=== PATIENT | female | born 1985 | race Caucasian/White ===

== ENCOUNTER 2017-04-23 13:03 | Outpatient (CLI) | payer OTHER | END 2017-04-23 13:04 | disposition home or self-care (01) | LOC: BICRAD 13:03 | PROVIDERS: ATTEND Specialist | DX: R05 Cough (principal) | CPT/HCPCS: 71020 ==

== ENCOUNTER 2017-06-12 11:03 | Outpatient (CLI) | payer OTHER | END 2017-06-12 11:04 | disposition home or self-care (01) | LOC: BICRAD 11:03 | PROVIDERS: ATTEND Nurse Practitioner Family | DX: M54.2 Cervicalgia (principal); M54.5 Low back pain; M54.6 Pain in thoracic spine | CPT/HCPCS: 72052; 72072; 72100 ==

== ENCOUNTER 2017-08-21 13:38 | Outpatient (CLI) | payer OTHER ==
--- NOTE | 2017-08-21 17:50 | MRI ---
MRI LUMBAR SPINE WITHOUT IV CONTRAST: Date: 08-21-17 History: Lumbar radiculopathy on the right. Patient complains of right leg, hip, and back pain. FINDINGS: Retroperitoneal structures have a normal MR appearance. Normal signal intensity is demonstrated in th e bone marrow. Conus medullaris is normal in appearance, terminating at the L1-2 level. L1-2: There is no disc bulge or disc herniation. Central spinal canal and neural foramina are patent. L2-3: There is a minimal broad based disc bulge without significant central canal or neural foraminal narrowing. L3-4: There is no significant disc bulge or disc herniation. Central spinal canal and neural foramina are patent. L4-5: There is mild broad based disc bulge but the central spinal canal is patent. There is minimal e ncroachment on the left neural foramen. The right neural foramen is patent. L5-S1: There is no disc bulge. The central canal spinal canal is patent. There are facet hypertrophic changes at this level, greater on the left, which does result in moderate encroachment on the left n eural foramen. Right neural foramen is patent. IMPRESSION: Minimal disc degenerative changes in the lumbar spine. POS: [facility]
== END 2017-08-21 13:39 | disposition home or self-care (01) ==
LOC: MRI 13:38
PROVIDERS: ATTEND Family Medicine
DX: M47.26 Other spondylosis with radiculopathy, lumbar region (principal)
CPT/HCPCS: 72148

== ENCOUNTER 2018-01-16 10:33 | Outpatient (CLI) | payer OTHER | END 2018-01-16 10:34 | disposition home or self-care (01) | LOC: BICRAD 10:33 | PROVIDERS: ATTEND Family Medicine | DX: M77.52 Other enthesopathy of left foot and ankle (principal); M79.89 Other specified soft tissue disorders | CPT/HCPCS: 36415; 80053; 84439; 84443; 84481 ==

== ENCOUNTER 2018-06-19 10:40 | Outpatient (CLI) | payer OTHER | END 2018-06-19 10:41 | disposition home or self-care (01) | LOC: CTENTCT 10:40 | PROVIDERS: ATTEND Otolaryngology Plastic Surgery within the Head & Neck | DX: J32.9 Chronic sinusitis, unspecified (principal) | CPT/HCPCS: 70486 ==

== ENCOUNTER 2018-06-25 07:46 | Day surgery (SDC) | payer OTHER ==
[2018-06-24 12:26] VITALS: BMI 23.8
[2018-06-25] MEDS ORDERED: Oxymetazoline HCl 0.05% ( 15 ML ) ONE ×3 (10:55→12:27)
[2018-06-25] MEDS ORDERED: Dexamethasone 20 MG/5 ML VIAL ONE (12:06)
[2018-06-25] MEDS ORDERED: Succinylcholine Chloride 20 MG/ML 10 ml SYRINGE FS ONE (12:06)
[2018-06-25] MEDS ORDERED: Ondansetron PF 4 MG/2 ML Vial ONE ×2 (12:06→13:49)
[2018-06-25] MEDS ORDERED: Lidocaine 1% PF 5 ML VIAL ONE (12:06)
[2018-06-25] MEDS ORDERED: PROPOFOL 200 MG/20 ML VIAL ONE (12:06)
[2018-06-25] MEDS ORDERED: Fentanyl 100 MCG/2 ML VIAL ONE ×3 (12:24→13:49)
[2018-06-25] MEDS ORDERED: Lidocaine 1% w/Epinephrine 1:100K 20 ML VIAL ONE (12:27)
[2018-06-25] MEDS ORDERED: Bacitracin Zinc Ointment 30 gm TUBE ONE (12:27)
[2018-06-25] MEDS ORDERED: Ketorolac Tromethamine 30 MG/ML VIAL ONE (13:49)
[2018-06-25] MEDS ORDERED: HYDROcodone/Acetaminophen 5/325 mg Tablet ONE (15:37)
--- NOTE | 2018-06-26 13:41 | OP ---
DATE OF PROCEDURE: 06/25/2018 PREOPERATIVE DIAGNOSES: 1. Chronic rhinosinusitis. 2. Nasal septal deviation. 3. Bilateral inferior turbinate hypertrophy. 4. Nasal obstruction. POSTOPERATIVE DIAGNOSES: 1. Chronic rhinosinusitis. 2. Nasal septal deviation. 3. Bilateral inferior turbinate hypertrophy. 4. Nasal obstruction. PROCEDURES PERFORMED: 1. Bilateral endoscopic sinus surgery, total ethmoidectomies. 2. Bilateral endoscopic sinus surgery, maxillary antrostomies. 3. Bilateral endoscopic sinus surgery, frontal sinusotomy. 4. Nasal septoplasty. 5. Bilateral inferior turbinate submucosal resection. ESTIMATED BLOOD LOSS: 50 mL COMPLICATIONS: None. ANESTHESIA: GETA. PROCEDURE IN DETAIL: Patient was taken to the operating room and placed supine on the table. General endotracheal anesthesia was obtained by the anesthesia staff. Tube was secured in the left lower lip. Patient was then placed in the beach chair position, and Afrin pledgets were placed in the nasal cavity. Injections of 1% lidocaine with 1:100,000 epinephrine were made into the nasal septum as well as the inferior turbinates. Patient was then prepped and draped in standard surgical fashion for nasal surgery. Following this, the Afrin pledgets were removed. A [place] incision was made on the left nasal septum. Submucoperichondrial dissection was performed. The deviated portions of the septum included portions of the cartilage and the bony septum. These isolated areas were removed using 3 cutting rongeurs. There was noted to be a large dorsal and caudal strut, left intact for support of the nose. The mucoperichondrial flaps were then reapproximated using a 4-0 gut stitch. Any straight pieces of cartilage were crushed prior to this and placed between the mucoperichondrial flaps. Following this, the inferior turbinates were then punctured with a submucosal coblation wand, and submucosal coblations were performed of multiple areas of the inferior portion of the anterior inferior turbinate. Please note that the submucosal microdebrider blade was used to submucosally resect the anterior and inferior portions of the inferior turbinates bilaterally. Following this, a 0-degree endoscope was advanced in the middle meatus. Middle turbinates were gently medialized using a [place]akin elevator. Following this, the uncinate process was identified and was anteriorly fractured using a ball-ended probe bilaterally. Following this, the uncinate process was removed using the 0-degree microdebrider and upbiting Blakesley forceps. Following this, the natural maxillary sinus ostia were gently palpated using a ball-ended probe. Following this, the natural maxillary sinus ostia were widened using the curved microdebrider and straight Blakesley forceps bilaterally. Following this, the ethmoidal bulla was identified bilaterally and was punctured on its medial and inferior aspect with the 0-degree microdebrider. Following this, the ethmoidal bulla and anterior ethmoidal cells were opened using the microdebrider and the up-biting Blakesley forceps. Following this, the grand lamella was identified bilaterally and was punctured using the 0-degree microdebrider into the posterior ethmoidal cells. Working from posterior to anterior, the ethmoidal cells were opened. Following this, the 45-degree endoscope was used to further visualize the frontal sinus recess and frontal sinus ostia. Using the curved microdebrider, the frontal sinus ostia were widened bilaterally. Following this, the sphenoid sinuses were approached by staying medial to the middle turbinates. Using the 0-degree scope, the attachment of the superior turbinate to the posterior nasal wall was identified. Staying just medial and inferior to this attachment, a Garza tip suction was used to recreate the narrowed sphenoid sinus ostia bilaterally. Following this, the sphenoid sinus ostia were widened bilaterally using the microdebrider and was widened medially and inferiorly. Following this, the nasal cavity was irrigated. MeroPack's were placed within the middle meatus. Gomez splints were placed and secured. The patient tolerated the procedure well. Job ID: [id number]
== END 2018-06-25 16:00 | disposition home or self-care (01) ==
LOC: SDC 07:46
PROVIDERS: ATTEND Otolaryngology Plastic Surgery within the Head & Neck
PROC: 099W8ZZ Drainage of Right Sphenoid Sinus, Via Natural or Artificial Opening Endoscopic (ICD-10-PCS; principal; 2018-06-25)
PROC: 099X8ZZ Drainage of Left Sphenoid Sinus, Via Natural or Artificial Opening Endoscopic (ICD-10-PCS; principal; 2018-06-25)
PROC: 09SM0ZZ Reposition Nasal Septum, Open Approach (ICD-10-PCS; principal; 2018-06-25)
PROC: 099S8ZZ Drainage of Right Frontal Sinus, Via Natural or Artificial Opening Endoscopic (ICD-10-PCS; principal; 2018-06-25)
PROC: 09TU8ZZ Resection of Right Ethmoid Sinus, Via Natural or Artificial Opening Endoscopic (ICD-10-PCS; principal; 2018-06-25)
PROC: 099R8ZZ Drainage of Left Maxillary Sinus, Via Natural or Artificial Opening Endoscopic (ICD-10-PCS; principal; 2018-06-25)
PROC: 09TL0ZZ Resection of Nasal Turbinate, Open Approach (ICD-10-PCS; principal; 2018-06-25)
PROC: 09TV8ZZ Resection of Left Ethmoid Sinus, Via Natural or Artificial Opening Endoscopic (ICD-10-PCS; principal; 2018-06-25)
PROC: 099T8ZZ Drainage of Left Frontal Sinus, Via Natural or Artificial Opening Endoscopic (ICD-10-PCS; principal; 2018-06-25)
PROC: 099Q8ZZ Drainage of Right Maxillary Sinus, Via Natural or Artificial Opening Endoscopic (ICD-10-PCS; principal; 2018-06-25)
DX: J32.4 Chronic pansinusitis (principal); J34.2 Deviated nasal septum; J34.3 Hypertrophy of nasal turbinates; R09.82 Postnasal drip; F41.9 Anxiety disorder, unspecified; F32.9 Major depressive disorder, single episode, unspecified; M79.7 Fibromyalgia; M19.90 Unspecified osteoarthritis, unspecified site; Z87.891 Personal history of nicotine dependence; Z79.899 Other long term (current) drug therapy; Z88.2 Allergy status to sulfonamides; Z88.5 Allergy status to narcotic agent; Z88.8 Allergy status to other drugs, medicaments and biological substances; Z91.048 Other nonmedicinal substance allergy status
CPT/HCPCS: 85014; J1100; J1885; J2001; J2405; J2704; J3010

== ENCOUNTER 2019-03-27 08:11 | Outpatient (CLI) | payer OTHER ==
--- NOTE | 2019-03-27 12:23 | NM ---
NUCLEAR MEDICINE PARATHYROID SCAN: HISTORY: Hyperparathyroidism. COMPARISON: None. TECHNIQUE: Patient was administered 25 mg of technetium 99m sestamibi intravenously. Immediate, 1 hour and 2 yany r planar imaging was performed. In addition, SPECT images were performed. FINDINGS: Appropriate uptake of the radiotracer in the salivary glands and thyroid gland. On the 1 and 2 hour d elayed images, there is no significant radiotracer retention in the thyroid bed. IMPRESSION: No scintigraphic evidence of significant radiotracer retention in the thyroid bed to suggest parathyr oid adenoma. Further evaluation with a pre and postcontrast soft tissue neck CT utilizing parathyroid protocol may be beneficial. Transcribed Date/Time: 03/27/2019 12:27 PM
== END 2019-03-27 08:12 | disposition home or self-care (01) ==
LOC: NM 08:11
PROVIDERS: ATTEND Family Medicine
DX: E21.3 Hyperparathyroidism, unspecified (principal)
CPT/HCPCS: 78072; A9500

== ENCOUNTER 2019-04-28 07:22 | Outpatient (CLI) | payer OTHER ==
--- NOTE | 2019-04-28 10:06 | CT ---
CT NECK WITH AND WITHOUT CONTRAST: (PARATHYROID PROTOCOL) 04/28/2019 HISTORY: A 33-year-old female with primary hyperparathyroidism. Hypercalcemia. TECHNIQUE: IV contrast: Isovue-370 110 mL. Pre-contrast scan, 25 second post-contrast scan and 65 second post-contrast scan were performed from the subcarinal mediastinum to the mid maxillary sinus level. Coronal and sagittal reconstructions. FINDINGS: At the C7 level there is a right paraesophageal enhancing small mass, measuring approximately 1.5 x 0 .3 x 0.8 cm, abutting the medial surface of the right longus colli muscle and abutting the posterior surface of the right lobe mid pole of the thyroid gland. This mass has no intrinsic iodine (axial nicole ges 59 of 120 series 3; 57 of 120 series 2; 59 of 120 series 7; sagittal images 46 of 76 series 6; 44 of 76 series 10; coronal images 49 of 83 series 5; 51 of 82 series 9). IMPRESSION: Right paraesophageal, retrothyroidal small mass is an excellent candidate for parathyroid adenoma. POS: [facility]
[2019-04-28] MEDS ORDERED: Iopamidol-370 76% 500 ML 1 ML ONE (10:48)
== END 2019-04-28 07:23 | disposition home or self-care (01) ==
LOC: BICCT 07:22
PROVIDERS: ATTEND Family Medicine
DX: E21.0 Primary hyperparathyroidism (principal); E07.89 Other specified disorders of thyroid
CPT/HCPCS: 70492; Q9967

== ENCOUNTER 2019-05-06 11:48 | Day surgery (SDC) | payer OTHER ==
[2019-05-05 13:24] VITALS: BMI 28.0
[2019-05-06] MEDS ORDERED: Labetalol HCl 100 MG/20 ML VIAL ONE (13:18)
[2019-05-06] MEDS ORDERED: Ondansetron PF 4 MG/2 ML Vial ONE (13:18)
[2019-05-06] MEDS ORDERED: Lidocaine 1% PF 5 ML VIAL ONE (13:18)
[2019-05-06] MEDS ORDERED: PROPOFOL 200 MG/20 ML VIAL ONE (13:18)
[2019-05-06] MEDS ORDERED: Dexamethasone 20 MG/5 ML VIAL ONE (13:18)
[2019-05-06] MEDS ORDERED: Lidocaine 1% w/Epinephrine 1:100K 20 ML VIAL ONE (13:38)
[2019-05-06] MEDS ORDERED: Bacitracin Zinc Ointment 30 gm TUBE ONE (13:50)
[2019-05-06] MEDS ORDERED: Scopolamine 1.5 mg/72 hour Patch ONE (14:01)
[2019-05-06] MEDS ORDERED: Midazolam HCl 2 mg/2 ml Vial ONE ×2 (14:01→14:05)
[2019-05-06] MEDS ORDERED: Fentanyl 100 MCG/2 ML VIAL ONE ×3 (14:05→16:35)
[2019-05-06] MEDS ORDERED: Promethazine HCl 25 MG/ML VIAL ONE (15:58)
[2019-05-06] MEDS ORDERED: diphenhydrAMINE 50 MG/ML VIAL ONE (17:05)
[2019-05-06] MEDS ORDERED: Hydrocodone-Acetamin 15 ML UDCUP ONE (18:16)
--- NOTE | 2019-05-07 13:39 | OP ---
DATE OF PROCEDURE: 05/06/2019 PREOPERATIVE DIAGNOSES: 1. Hyperparathyroidism. 2. Right parathyroid adenoma. POSTOPERATIVE DIAGNOSES: 1. Hyperparathyroidism. 2. Right parathyroid adenoma. PROCEDURE PERFORMED: Right inferior parathyroidectomy. ESTIMATED BLOOD LOSS: Less than 5 mL. COMPLICATIONS: None. ANESTHESIA: GETA with laryngeal nerve monitor. DESCRIPTION OF PROCEDURE: The patient was taken to the operating room and placed supine on the table. General endotracheal anesthesia was obtained by the Anesthesia Staff. The indirect laryngoscope was then used to visualize the vocal cords and the laryngeal electrodes were noted to be between the vocal cords bilaterally. Following this, the tube was secured to the midline of the upper lip and the patient was prepped and draped in standard surgical fashion. The preoperative localization studies showed a right inferior parathyroid adenoma. A surgical incision was made approximately 2 cm in length overlying this area on the inferior aspect of the right thyroid lobe. Dissection was carried through the strap muscles and the thyroid gland was encountered and was retracted medially. Dissection in the retrothyroid area showed a 3 x 2 cm large parathyroid adenoma. This was removed and sent for frozen section analysis, which confirmed parathyroid adenoma. The superior parathyroid gland was then visualized and was noted to be approximately 6 mm in diameter and soft. Therefore, the diagnosis of a right inferior parathyroid adenoma was confirmed and the wound was then irrigated and closed. 4-0 Monocryl stitches were placed to reapproximate the platysmal muscle and the subcuticular skin and Dermabond was placed on the skin edges. The patient tolerated the procedure well. The intraoperative laryngeal nerve monitor remained on throughout the procedure and was now turned off. Job ID: [id number]
== END 2019-05-06 19:05 | disposition home or self-care (01) ==
LOC: SDC 11:48
PROVIDERS: ATTEND Otolaryngology Plastic Surgery within the Head & Neck
PROC: 0GBP0ZZ Excision of Left Inferior Parathyroid Gland, Open Approach (ICD-10-PCS; principal; 2019-05-06)
DX: D35.1 Benign neoplasm of parathyroid gland (principal); E21.3 Hyperparathyroidism, unspecified; F41.9 Anxiety disorder, unspecified; F32.9 Major depressive disorder, single episode, unspecified; M19.90 Unspecified osteoarthritis, unspecified site; Z79.899 Other long term (current) drug therapy; Z87.891 Personal history of nicotine dependence; Z88.2 Allergy status to sulfonamides; Z88.5 Allergy status to narcotic agent; Z88.8 Allergy status to other drugs, medicaments and biological substances; Z91.048 Other nonmedicinal substance allergy status
CPT/HCPCS: 36415; 85014; 88305; 88331; 88334; 93005; 93010; J1100; J1200; J2001; J2250; J2405; J2550; J2704; J3010

== ENCOUNTER 2019-07-17 09:38 | Outpatient (CLI) | payer OTHER ==
--- NOTE | 2019-07-17 11:41 | RAD ---
2 VIEW CHEST: Date: 07/17/2019 HISTORY: Respiratory infection. URI. FINDINGS: Lungs are clear. No infiltrate. Heart and mediastinum appear normal. Osseous structures unremarkable. IMPRESSION: No acute findings. POS: [facility]
== END 2019-07-17 09:39 | disposition home or self-care (01) ==
LOC: SCSRAD 09:38
PROVIDERS: ATTEND Family Medicine
DX: R05 Cough (principal)
CPT/HCPCS: 71046

== ENCOUNTER 2019-11-01 12:08 | Emergency (ER) | payer OTHER ==
[2019-11-02 14:53] LABS: SARS-CoV-2 MS2 Positive; SARS-CoV-2 N Gene Negative; SARS-CoV-2 S Gene Negative; SARS-CoV-2 orf1ab Negative
== END 2019-11-01 13:15 | disposition home or self-care (01) ==
LOC: ERS 12:08
DX: R68.83 Chills (without fever) (principal); R19.7 Diarrhea, unspecified; R11.0 Nausea; Z20.828 Contact with and (suspected) exposure to other viral communicable diseases; F41.9 Anxiety disorder, unspecified; F60.3 Borderline personality disorder; M45.9 Ankylosing spondylitis of unspecified sites in spine
CPT/HCPCS: 87635; 99284; U0003

== ENCOUNTER 2020-08-17 13:51 | Outpatient (CLI) | payer BC | END 2020-08-17 13:52 | disposition home or self-care (01) | LOC: BICRAD 13:51 | PROVIDERS: ATTEND Family Medicine | DX: R05 Cough (principal) | CPT/HCPCS: 71046 ==

== ENCOUNTER 2021-06-30 08:13 | Outpatient (CLI) | payer BC | END 2021-06-30 08:14 | disposition home or self-care (01) | LOC: SCSRAD 08:13 | PROVIDERS: ATTEND Family Medicine | DX: U07.1 COVID-19 (principal) | CPT/HCPCS: 71046 ==

== ENCOUNTER 2023-03-25 14:51 | Outpatient (CLI) | payer OTHER | END 2023-03-25 14:52 | disposition home or self-care (01) | LOC: BICMAMMO 14:51 | PROVIDERS: ATTEND Family Medicine | DX: N63.24 Unspecified lump in the left breast, lower inner quadrant (principal) | CPT/HCPCS: 77066; G0279 ==

== ENCOUNTER 2025-01-26 13:36 | Outpatient (CLI) | payer OTHER | END 2025-01-26 13:37 | disposition home or self-care (01) | LOC: SCSRAD 13:36 | PROVIDERS: ATTEND Nurse Practitioner Family | DX: S49.92XA Unspecified injury of left shoulder and upper arm, initial encounter (principal); R07.81 Pleurodynia ==